=== PATIENT | male | born 1995 | race Asian ===

== ENCOUNTER 2023-09-08 23:41 | Emergency (ER) | payer BC, OTHER ==
[~2023-09-08] VITALS: Ht 175.3 cm; Wt 73.9 kg
[2023-09-08 23:50] VITALS: BP_SYST 135; PULSE 90; RESP 16; TEMP 97.9; O2SAT 98
[2023-09-09] MEDS ORDERED: LIDO700A30 TP (00:59)
[2023-09-09 01:08] VITALS: BP_SYST 126; PULSE 123; RESP 16; TEMP 97.9; O2SAT 100
[2023-09-09 01:31] LABS: BARBITURATE, URINE NEGATIVE (NEG <=200); BENZODIAZEPINE, URINE NEGATIVE (NEG <=150); CANNABINOID, URINE NEGATIVE (NEG <=50); COCAINE, URINE NEGATIVE (NEG <=150); METHAMPHETAMINES SCREEN,URINE NEGATIVE (NEG <=500); OPIATE, URINE NEGATIVE (NEG <=100); PHENCYCLIDINE SCREEN,URINE NEGATIVE (NEG <=25); URINE AMPHETAMINE NEGATIVE (NEG <=500); URINE METHADONE NEGATIVE (NEG <=200); URINE OXYCODONE SCREEN NEGATIVE (NEG <=100)
[2023-09-09 01:32] LABS: UR TRICYCLIC ANTIDEPRESSANTS NEGATIVE (NEG <=300)
== END 2023-09-09 01:08 | disposition home or self-care (01) ==
LOC: SED 23:41
DX: R07.89 Other chest pain (principal); Z79.899 Other long term (current) drug therapy
CPT/HCPCS: 80307; 93005; 99284